=== PATIENT | female | born 1975 | race Caucasian/White ===

== ENCOUNTER 2016-03-07 13:55 | Emergency (ER) | payer OTHER ==
[~2016-03-07] VITALS: Ht 152.4 cm; Wt 83.9 kg
[~2016-03-07 13:55] MED LIST: AMOXICILLIN500 M3 PO; AUGMENTIN 875 M1 TAB PO; AUGMENTIN 875-1 EACH PO; AUGMENTIN 875875 MG PO; DOCUSATE SODIU100 MG PO; FLONASE120 SPRAY/ INH; IBU-6600 MG PO; LEVOTHYROXINE0.1 MG; LEVOTHYROXINE0.3 MG PO; LEVOTHYROXINE200 MC1 PO; LEVOTHYROXINE75 MCG PO; MOTRIN 800MG T800 MG PO; NASONEX0.05 MG/Ac INH; NASONEX17 GM NASB; PERCOCET 325 MG1 TA2 PO; PROAIR HFA8.5 GM INH; PROVENTIL0.09 MG/A1 INH; Q-PAP325 M1 PO; ROBITUSSIN W/CO10 ML PO; TESSALON PERLE100 M1 PO; TYLENOL #31 TAB PO; WAL ITIN D PO
[2016-03-07 14:04] VITALS: BP 153/80
--- NOTE | 2016-03-07 15:51 | ED INFLUENZA/URI COMPLAINT ---
History of Present Illness General Chief Complaint: Upper Respiratory Sx/Fever Stated Complaint: URI Source: patient, old records Exam Limitations: no limitations Vital Signs & Intake/Output Vital Signs & Intake/Output Vital Signs Date Time Temp Pulse Resp B/P Pulse O2 O2 Flow FiO2 Ox Delivery Rate 03/07 1404 98.2 107 18 153/80 100 Room Air Allergies Coded Allergies: NO KNOWN ALLERGIES (NO) (05/04/15) Reconcile Medications Acetaminophen (Q-Pap) 325 MG TABLET 2 TAB PO PRN PAIN (Reported) Albuterol Sulfate (Proair Hfa) 90 MCG HFA.AER.AD 2 PUF INH Q4-6 PRN PRN SOB Amoxicillin/Potassium Clav (Augmentin 875-125 Tablet) 875 MG-125 MG TABLET 1 TAB PO BID SINUSITIS Amoxicillin/Potassium Clav (Augmentin 875-125 Tablet) 875 MG-125 MG TABLET 1 TAB PO BID SINUSITIS Benzonatate (Tessalon Perle) 100 MG CAPSULE 1 CAP PO TID PRN COUGH Levothyroxine Sodium 200 MCG TABLET 1 TAB PO DAILY THYROID (Reported) Levothyroxine Sodium 75 MCG TABLET 1 TAB PO DAILY THYROID (Reported) Loratadine/Pseudoephedrine (Wal-Itin D 12 Hour Tablet) 5 MG-120 MG TAB.ER.12H 1 TAB PO Q12H PRN NASAL CONGESTION (Reported) Mometasone Furoate (Nasonex) 50 MCG SPRAY.PUMP 2 SPRAY NASB DAILY PRN CONGESTION Prednisone 20 MG TABLET 2 TAB PO DAILY BRONCHITIS Triage Note: PT TO ER C/C PRODUCTIVE COUGH AND SINUS CONGESTION X 9 DAYS, SAW PCP 2 DAYS AGO FOR SAME. GIVEN RX FOR MOTRIN. STATES S/S NOT IMPROVING. AFEBRILE, DENIES FEVERS OR CHILLS. RA SAT 100% Triage Nurses Notes Reviewed? yes : No Patient currently breastfeeds: No HPI: 60-year-old female with one-week history of intermittently productive cough, getting worse. Her primary care doctor this week who sent for an outpatient chest x-ray which was done at our facility which I reviewed and is negative for pneumonia however positive for possible small airway disease or bronchitis. She has nasal congestion and sinus congestion 4 days ago. Coughing has caused her to develop right-sided chest pain. Worse in the last few days. She was seen by her primary care doctor on [place] and placed on Motrin 600 mg without relief. She is a smoker. She is not taking any jffi-cxq-tsjqdap medication. Symptoms are moderate. She denies any fever or flulike illness. (TORREY MADDOX) Past History Travel History Traveled to [place] past 21 day No Medical History Any Pertinent Medical History? 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 No (TORREY MADDOX) Review of Systems Review of Systems Constitutional: Reports: see HPI. EENTM: Reports: see HPI. Respiratory: Reports: see HPI. Cardiovascular: Reports: no symptoms. GI: Reports: no symptoms. Genitourinary: Reports: no symptoms. Musculoskeletal: Reports: no symptoms. Skin: Reports: no symptoms. Neurological/Psychological: Reports: no symptoms. Hematologic/Endocrine: Reports: no symptoms. Immunologic/Allergic: Reports: no symptoms. All Other Systems: Reviewed and Negative (TORREY MADDOX) Physical Exam Physical Exam Ears, Nose, Throat: moist mucous membrane, hearing grossly normal, Tympanic normal, pharynx normal, nasal congestion, nasal drainage Comments: Well-developed well-nourished person in no acute distress Pharynx normal. No swelling or edema. Neck: Supple, no lymphadenopathy, normal range of motion without pain or tenderness Back: Nontender, no CVA tenderness. Full range of motion Cardiovascular: Regular rate and rhythms no murmurs, normal JVP Respiratory: Chest nontender. No respiratory distress. Very faint wheezing noted bilaterally Abdomen: Soft, nontender nondistended, no appreciable organomegaly. Normal bowel sounds. No ascites Extremity: No edema, no calf tenderness to palpation, normal and equal pulses. Neuro: Alert oriented x3, motor sensory normal, cranial nerves II through XII grossly intact. Skin: No appreciable rash on exposed skin, skin is warm and dry. Psych: Mood and affect is normal, memory and judgment is normal. Core Measures Severe Sepsis Present: No Septic Shock Present: No (TORREY MADDOX) Progress Differential Diagnosis: influenza, meningitis, neutropenia, otitis, pneumonia, pharyngitis, sinusitis Plan of Care: Patient is a smoker, over one week of symptoms, failed conservative treatment, will place an antibiotic short course of prednisone. Smoking cessation counseling discussed Initial ED EKG: none (TORREY MADDOX) Departure Departure Disposition: HOME OR SELF CARE Condition: Stable Clinical Impression Primary Impression: Acute bacterial sinusitis Secondary Impressions: Bronchitis Referrals: ANA BURRELL MD (PCP/Family) Additional Instructions: Take antibiotics for your infection as directed. Use eldn-dcx-nylgazk multisystem cold medication as needed. Motrin and Tylenol as needed for fever. Drink plenty of fluids. Return or follow-up with your doctor if not better in the next 3-5 days or if you're having continued worsening fevers, nausea, vomiting, shortness of breath, abdominal pain, difficulty swallowing or drinking or worsening flulike illness. Departure Forms: Customer Survey General Discharge Information Prescriptions: Current Visit Scripts Amoxicillin/Potassium Clav (Augmentin 875-125 Tablet) 1 TAB PO BID #14 TAB Prednisone 2 TAB PO DAILY #10 TAB (TORREY MADDOX) PA/PETROLEUM ENGINEERING TEACHER Co-Sign Statement Statement: ED Attending supervision documentation- [] I saw and evaluated the patient. I have also reviewed all the pertinent lab results and diagnostic results. I agree with the findings and the plan of care as documented in the PA's/PETROLEUM ENGINEERING TEACHER's documentation. x I have reviewed the ED Record and agree with the PA's/PETROLEUM ENGINEERING TEACHER's documentation. [] Additions or exceptions (if any) to the PAs/PETROLEUM ENGINEERING TEACHER's note and plan are summarized below: [] (JENNIFER WILL,AINSLEY)
[2016-03-07] MEDS ORDERED: AUGMENTIN 875-1 EACH PO (16:02)
[2016-03-07] MEDS ORDERED: PREDNISONE20 M1 PO (16:02)
== END 2016-03-07 16:12 ==
LOC: ERH 13:55
DX: R07.9 Chest pain, unspecified (principal); J32.9 Chronic sinusitis, unspecified; J40 Bronchitis, not specified as acute or chronic; F17.210 Nicotine dependence, cigarettes, uncomplicated

== ENCOUNTER 2016-03-14 15:56 | Emergency (ER) | payer OTHER ==
[~2016-03-14] VITALS: Ht 152.4 cm; Wt 86.2 kg
[~2016-03-14 15:56] MED LIST changes: +PREDNISONE20 M1 PO
--- NOTE | 2016-03-14 16:41 | ED GENERAL ADULT ---
History of Present Illness General Chief Complaint: Upper Respiratory Sx/Fever Stated Complaint: COUGH Source: patient Exam Limitations: no limitations Vital Signs & Intake/Output Vital Signs & Intake/Output Vital Signs Date Time Temp Pulse Resp B/P Pulse O2 O2 Flow FiO2 Ox Delivery Rate 03/14 1808 97.8 91 18 134/87 94 Room Air 03/14 1636 Room Air 03/14 1606 97.9 100 18 143/95 96 Room Air Allergies Coded Allergies: NO KNOWN ALLERGIES (NO) (05/04/15) Reconcile Medications Acetaminophen (Q-Pap) 325 MG TABLET 2 TAB PO PRN PAIN (Reported) Albuterol Sulfate (Proair Hfa) 90 MCG HFA.AER.AD 2 PUF INH Q4-6 PRN PRN SOB Albuterol Sulfate (Proair Hfa) 90 MCG HFA.AER.AD 2 PUF INH Q4-6 PRN PRN BRONCHITIS Amoxicillin/Potassium Clav (Augmentin 875-125 Tablet) 875 MG-125 MG TABLET 1 TAB PO BID SINUSITIS Benzonatate (Tessalon Perle) 100 MG CAPSULE 1 CAP PO TID PRN COUGH Estradiol 0.05 MG/24 HOUR PATCH.TDWK 1 PATCH TOP QWED HRT (Reported) Hydrocodone/Acetaminophen ([place] 5-325 Tablet) 5 MG-325 MG TABLET 1-2 TAB PO Q4-6 PRN PRN PAIN Ibuprofen 800 MG TABLET 1 TAB PO TID PRN INFLAMMATION/PAIN Levothyroxine Sodium (Synthroid) 300 MCG TABLET 1 TAB PO DAILY THYROID ( Reported) Triage Note: PT TO TRIAGE WITH C/O COUGH AND LEFT SIDED CONSTANT CHEST PAIN 07/17 SINCE 03/05. PT WAS SEEN AT PCP OFFICE ON 03/05 AND HERE IN ER ON 03/07 AND WAS ON AMOXICILLINE AND PREDNISONE SINCE. PT STATES SHE HAS NEW KIND OF BURNING CHEST PAIN x2DAYS AND STILL HAS PRODUCTIVE COUGH OF YELLOW SPUTUM. O2SAT 97% ON RA, VSS, PT AFEBRILE. PT DENIES ABD PAIN,N/V/D,URINARY S/S. HX OF VERTIGO AND HYPOTHYROID. Triage Nurses Notes Reviewed? yes Onset: Gradual Duration: week(s): (1) Timing: no prior history Injury Environment: home Severity: moderate Severity Numbers: 7 No Modifying Factors: none : No Patient currently breastfeeds: No HPI: Patient is a 40-year-old female presenting to the emergency department with chief complaint of left-sided rib pain, dry cough has been going on for the past 1-2 weeks. She saw her primary care physician who didn't x-ray, diagnosed her with bronchitis. Started her on cough medication steroids. Symptoms did not improve so she came to the emergency department for evaluation shortly afterwards. She reports that we put her on antibiotics and some more steroids which did not help. She still coughing and still has some left-sided rib pain. Denies any falls or trauma. No rashes. Denies any shortness of breath. She reports that the left-sided rib pain is now radiating up the left side of the chest. Symptoms have been constant for the past week or so. No history of cardiac issues. No family history of cardiac issues. No history of blood clots. Denies any recent travel. She does take control via skin patches. Denies any recent travel. Denies taking anything specific for the pain. Pain is currently moderate. Achy and worse with palpation. (DARRIN TRAN) Past History Travel History Traveled to [place] past 21 day Yes Medical History Any Pertinent Medical History? 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 No (DARRIN TRAN) Review of Systems Review of Systems Constitutional: Reports: no symptoms. Comments Review of systems: See HPI, All other systems negative. Constitutional, no chills fever or weight loss HEENT: No visual changes no sore throat no congestion Cardiovascular: No palpitation , orthopnea or ankle swelling Skin, no jaundice no rashes Respiratory: No dyspnea sputum or hemoptysis GI: No nausea no vomiting : No dysuria No hematuria Muscle skeletal: no back pain, no neck pain, Neurologic: No numbness no confusion Psych: No stress anxiety or depression,. Heme/endocrine: No bruising no bleeding no polyuria or polydipsia Immunology: No splenectomy or history of AIDS (DARRIN TRAN) Physical Exam Physical Exam General Appearance: well developed/nourished, no apparent distress, alert, awake , comfortable Comments: Well-developed well-nourished person in no acute distress HEENT: Pupils equally round and reactive to light and accommodation. Nose is atraumatic. External auditory canal and Tympanic membranes clear. Pharynx normal. No swelling or edema. Neck: Supple, no lymphadenopathy, normal range of motion without pain or tenderness Back: Nontender Cardiovascular: Regular rate and rhythms no murmurs rubs or gallops, normal JVP Respiratory: Chest is tender to palpation over the left lateral ribs. No obvious ecchymosis, no rashes. No respiratory distress.breath sounds clear to auscultation bilaterally Abdomen: Soft, nontender nondistended, no appreciable organomegaly. Normal bowel sounds. No ascites Extremity: No edema, no calf tenderness to palpation, normal and equal pulses. Neuro: Alert oriented x3 Skin: No appreciable rash on exposed skin, skin is warm and dry. Psych: Mood and affect is normal, memory and judgment is normal. Core Measures ACS in differential dx? Yes CVA/TIA Diagnosis: No Severe Sepsis Present: No Septic Shock Present: No (DARRIN TRAN) Progress Differential Diagnoses I considered the following diagnoses in my evaluation of the patient: Bronchitis, pneumonia, lung cancer, pulmonary embolus, dehydration, costochondritis, pleurisy, rib fracture Plan of Care: Orders Procedure Date/time Status D-DIMER 03/14 182 Complete Add-on Test (ER Only) 03/14 1806 Active TROPONIN LEVEL 03/14 1710 Complete COMPREHENSIVE METABOLIC PANEL 03/14 1710 Complete CBC WITHOUT DIFFERENTIAL 03/14 171 Complete EKG 03/14 1616 Active Laboratory Tests 03/14/16 1828: D-Dimer 217 03/14/16 1728: Anion Gap 7, Estimated GFR > 60, BUN/Creatinine Ratio 15.0, Glucose 91, Calcium 9.4, Total Bilirubin 0.3, AST 20, ALT 41, Alkaline Phosphatase 100, Troponin I < 0.01, Total Protein 6.5, Albumin 3.7, Globulin 2.8, Albumin/Globulin Ratio 1.3, CBC w Diff NO MAN DIFF REQ, RBC 4.53, MCV 94.3, MCH 31.6 H, RDW 14.8 H, MPV 8.6, Gran % 69.1, Lymphocytes % 25.8, Monocytes % 3.5, Eosinophils % 1.2, Basophils % 0.4, Absolute Granulocytes 7.2 H, Absolute Lymphocytes 2.7, Absolute Monocytes 0.4, Absolute Eosinophils 0.1, Absolute Basophils 0, PUBS MCHC 33.5 Diagnostic Imaging: Viewed by Me: Radiology Read. Discussed w/RAD: Radiology Read. Radiology Impression: PATIENT: BOYD HERNANDEZ PRESENT AGE: 40 PATIENT ACCOUNT NO: [id number] : 77 LOCATION: [facility] ORDERING PHYSICIAN: DARRIN TRIPLETT SERVICE DATE: 03/14/16-1709 EXAM TYPE: RAD - XRY-CHEST XRAY, PA AND LATERAL EXAMINATION: CHEST 2 VIEWS CLINICAL INFORMATION: COUGH, LEFT RIB PAIN. COMPARISON: 03/05/2016 chest x-ray. TECHNIQUE: PA and lateral views of the chest were obtained. FINDINGS: The lungs are well expanded. Mild peribronchial thickening again seen bilaterally. No focal infiltrate, effusion, edema, or pneumothorax. Cardiac and mediastinal silhouettes are within normal limits for technique. No acute bony abnormality seen IMPRESSION: Overall not significantly changed from the prior study with peribronchial cuffing seen centrally likely due to underlying reactive or small airways disease. No focal airspace disease. DICTATED BY: TORREY DINH MD DATE/TIME DICTATED:1727 CYLINDER SANDER OPERATOR:LEÓN DATE/TIME TRANSCRIBED:03/14/161727 CONFIDENTIAL, DO NOT COPY WITHOUT APPROPRIATE AUTHORIZATION. <Electronically signed in Other Vendor System> SIGNED BY: TORREY DINH MD 03/14/16 3208 Initial ED EKG: NSR (99 BPM) Prior EKG: unchanged Comments: Cannot perc patient negative. Patient takes hormonal supplementation. Patient resting comfortably, declined pain medication. Patient informed of all lab results, imaging studies. Likely bronchitis and costochondritis. D-dimer is negative. Patient will follow with primary care physician. (JERSON TRIPLETT,DARRIN) Departure Departure Time of Disposition: 1854 Disposition: HOME OR SELF CARE Condition: Stable Clinical Impression Primary Impression: Costochondral pain Secondary Impressions: Bronchitis Referrals: ANA BURRELL MD (PCP/Family) Additional Instructions: Follow-up with your primary care physician call TO MAKE appointment. Continue using grlt-fso-lweeawh anti-inflammatories. Finish amoxicillin previously prescribed. Take [place] as prescribed for severe pain. Departure Forms: Customer Survey General Discharge Information Prescriptions: Current Visit Scripts Ibuprofen 1 TAB PO TID PRN INFLAMMATION/PAIN #30 TAB Hydrocodone/Acetaminophen ([place] 5-325 Tablet) 1-2 TAB PO Q4-6 PRN PRN PAIN #12 TAB Albuterol Sulfate (Proair Hfa) 2 PUF INH Q4-6 PRN PRN BRONCHITIS #1 INHAL Benzonatate (Tessalon Perle) 1 CAP PO TID PRN COUGH #30 CAP (DARRIN TRAN) PA/CLINICAL FACULTY Co-Sign Statement Statement: ED Attending supervision documentation- [] I saw and evaluated the patient. I have also reviewed all the pertinent lab results and diagnostic results. I agree with the findings and the plan of care as documented in the PA's/CLINICAL FACULTY's documentation. [X] I have reviewed the ED Record and agree with the PA's/CLINICAL FACULTY's documentation. [] Additions or exceptions (if any) to the PAs/CLINICAL FACULTY's note and plan are summarized below: [] (PALOMO WILL,PHILL) Critical Care Note Critical Care Note Critical Care Time: non-applicable (DARRIN TRAN)
[2016-03-14] MEDS ORDERED: SYNTHROID300 MCG PO (16:43)
[2016-03-14] MEDS ORDERED: ESTRADIOL1 EAC4 TOP (16:44)
--- NOTE | 2016-03-14 17:33 | RADIOLOGY REPORT ---
EXAMINATION: CHEST 2 VIEWS CLINICAL INFORMATION: COUGH, LEFT RIB PAIN. COMPARISON: 03/05/2016 chest x-ray. TECHNIQUE: PA and lateral views of the chest were obtained. FINDINGS: The lungs are well expanded. Mild peribronchial thickening again seen bilaterally. No focal infiltrate, effusion, edema, or pneumothorax. Cardiac and mediastinal silhouettes are within normal limits for technique. No acute bony abnormality seen IMPRESSION: Overall not significantly changed from the prior study with peribronchial cuffing seen centrally likely due to underlying reactive or small airways disease. No focal airspace disease.
[2016-03-14 17:34] LABS: ABSOLUTE BASOPHIL COUNT 0 /CUMM (0.0-0.2); ABSOLUTE EOSINOPHIL COUNT 0.1 /CUMM (0.0-0.7); ABSOLUTE GRANULOCYTE CT 7.2 /CUMM (1.4-6.5); ABSOLUTE LYMPH COUNT 2.7 /CUMM (1.2-3.4); ABSOLUTE MONOCYTE COUNT 0.4 /CUMM (0.10-0.60); BASOPHIL % 0.4 % (0.0-2.0); EOSINOPHIL % 1.2 % (0-5); GRANULOCYTE % 69.1 % (42.2-75.2); HEMATOCRIT 42.8 % (37-47); MEAN CORPUSCULAR HGB 31.6 PG (27.0-31.0); MEAN CORPUSCULAR HGB CONC 33.5 G/DL (33.0-37.0); MEAN CORPUSCULAR VOLUME 94.3 FL (81.0-99.0); MEAN PLATELET VOLUME 8.6 FL (7.4-10.4); PLATELET COUNT 267 /CUMM (130-400); RBC DISTRIBUTION WIDTH 14.8 % (11.5-14.5); RED BLOOD CELL CT 4.53 /CUMM (4.20-5.40); WHITE BLOOD CELL COUNT 10.4 /CUMM (4.8-10.8)
[2016-03-14] MEDS ORDERED: TESSALON PERLE100 M1 PO (18:59)
[2016-03-14] MEDS ORDERED: NORCO 5-325 TA1 EACH PO (18:59)
[2016-03-14] MEDS ORDERED: PROAIR HFA8.5 GM INH (18:59)
[2016-03-14] MEDS ORDERED: IBUPROFEN800 M1 PO (18:59)
[2016-03-14 19:14] VITALS: BP 129/79
== END 2016-03-14 19:15 ==
LOC: ERH 15:56
PROVIDERS: Physician Assistant
DX: R07.9 Chest pain, unspecified (principal); M94.0 Chondrocostal junction syndrome [Tietze]; J40 Bronchitis, not specified as acute or chronic; F17.210 Nicotine dependence, cigarettes, uncomplicated
CPT/HCPCS: 93005; 93010

== ENCOUNTER 2016-06-23 20:03 | Emergency (ER) | payer OTHER ==
[~2016-06-23] VITALS: Ht 152.4 cm; Wt 86.2 kg
[~2016-06-23 20:03] MED LIST changes: +ESTRADIOL1 EAC4 TOP; +IBUPROFEN800 M1 PO; +NORCO 5-325 TA1 EACH PO; +SYNTHROID300 MCG PO
[2016-06-23 20:06] VITALS: BP 121/55
[2016-06-23] MEDS ORDERED: TESSALON PERLE100 M1 PO (21:50)
[2016-06-23] MEDS ORDERED: ZITHROMAX250 M2 PO (21:50)
[2016-06-23] MEDS ORDERED: NASONEX17 GM NASB (21:50)
--- NOTE | 2016-06-23 21:51 | ED INFLUENZA/URI COMPLAINT ---
History of Present Illness General Chief Complaint: General Adult Stated Complaint: PT HAS COUGHING UP STUFF STUFFY NOSE, Source: patient Exam Limitations: no limitations Vital Signs & Intake/Output Vital Signs & Intake/Output Vital Signs Date Time Temp Pulse Resp B/P B/P Pulse O2 O2 Flow FiO2 Mean Ox Delivery Rate 06/23 2200 96 Room Air 06/23 2005 96.8 100 18 121/55 96 Room Air Allergies Coded Allergies: NO KNOWN ALLERGIES (NO) (05/04/15) Reconcile Medications Acetaminophen (Q-Pap) 325 MG TABLET 2 TAB PO PRN PAIN (Reported) Albuterol Sulfate (Proair Hfa) 90 MCG HFA.AER.AD 2 PUF INH Q4-6 PRN PRN SOB Albuterol Sulfate (Proair Hfa) 90 MCG HFA.AER.AD 2 PUF INH Q4-6 PRN PRN BRONCHITIS Amoxicillin/Potassium Clav (Augmentin 875-125 Tablet) 875 MG-125 MG TABLET 1 TAB PO BID SINUSITIS Azithromycin (Zithromax) 250 MG TABLET 1 DP PO AD BRONCHITIS 2 the first day followed by 1 for days 2-5 Benzonatate (Tessalon Perle) 100 MG CAPSULE 1 CAP PO TID PRN COUGH Benzonatate (Tessalon Perle) 100 MG CAPSULE 1 CAP PO TID PRN COUGH Estradiol 0.05 MG/24 HOUR PATCH.TDWK 1 PATCH TOP QWED HRT (Reported) Hydrocodone/Acetaminophen ([place] 5-325 Tablet) 5 MG-325 MG TABLET 1-2 TAB PO Q4-6 PRN PRN PAIN Ibuprofen 800 MG TABLET 1 TAB PO TID PRN INFLAMMATION/PAIN Levothyroxine Sodium (Synthroid) 300 MCG TABLET 1 TAB PO DAILY THYROID ( Reported) Mometasone Furoate (Nasonex) 50 MCG SPRAY.PUMP 2 SPRAY NASB DAILY PRN CONGESTION Triage Note: PT TO TRIAGE WITH C/O COUGH PRODUCTIVE OF YELLOW SPUTUM AND COUNGESTION x6DAYS. DENIES FEVER. PT AFEBRILE IN TRIAGE. VSS. Triage Nurses Notes Reviewed? yes Onset: Gradual Duration: day(s): (6) Timing: remote history Severity: moderate Severity Numbers: 7 Prior Episodes/Possible Cause: occassional episodes No Modifying Factors: none : No Patient currently breastfeeds: No HPI: Patient is a 41-year-old female, daily smoker, presenting to the emergency Department chief complaint of intermittent productive cough of yellow sputum, malaise, sinus congestion and postnasal drip. Symptoms worse in the morning. Has been taking only pufg-dyb-xcqxjpt Tylenol without relief. Still has been smoking. No sick contacts or recent travel. No recent antibiotic use. No chest pain or palpitations. (DARRIN TRAN) Past History Travel History Traveled to [place] past 21 day No Medical History Any Pertinent Medical History? 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 No (DARRIN TRAN) Review of Systems Review of Systems Constitutional: Reports: malaise. Comments Review of systems: See HPI, All other systems negative. Constitutional, no chills fever or weight loss HEENT: No visual changes no sore throat Cardiovascular: No chest pain ,palpitation , orthopnea or ankle swelling Skin, no jaundice no rashes Respiratory: No dyspnea or hemoptysis GI: No nausea no vomiting : No dysuria No hematuria Muscle skeletal: no back pain, no neck pain, Neurologic: No numbness no confusion Psych: No stress anxiety or depression,. Heme/endocrine: No bruising no bleeding no polyuria or polydipsia Immunology: No splenectomy or history of AIDS (DARRIN TRAN) Physical Exam Physical Exam General Appearance: well developed/nourished, no apparent distress, alert, awake , comfortable Ears, Nose, Throat: pharyngeal erythema Comments: Well-developed well-nourished person in no acute distress HEENT: Pupils equally round and reactive to light and accommodation. Nose is atraumatic. External auditory canal and Tympanic membranes clear. Clear nasal discharge bilaterally. Pharynx is slightly erythematous, no exudate, clearing secretions without difficulty. No tonsillar enlargement.. No swelling or edema. Mild tenderness to palpation of the maxillary sinus bilaterally. Neck: Supple, no lymphadenopathy, normal range of motion without pain or tenderness Back: Nontender Cardiovascular: Regular rate and rhythms no murmurs rubs or gallops, normal JVP Respiratory: Chest nontender. No respiratory distress.breath sounds clear to auscultation bilaterally, reactive cough on exam. Extremity: No edema Neuro: Alert oriented x3 Skin: No appreciable rash on exposed skin, skin is warm and dry. Psych: Mood and affect is normal, memory and judgment is normal. Core Measures Severe Sepsis Present: No Septic Shock Present: No (DARRIN TRAN) Progress Differential Diagnosis: pneumonia, pharyngitis, sinusitis, BRONCHITIS Plan of Care: Patient's vitals are stable. Lungs clear to auscultation. She does have dry cough on exam. She is a daily smoker. Likely bronchitis. Patient will be treated for bronchitis Z-Scar, Tessalon Perles and Nasonex to follow up with PCP or return for worsening symptoms. Initial ED EKG: none (DARRIN TRAN) Departure Departure Time of Disposition: 2147 Disposition: HOME OR SELF CARE Condition: Stable Clinical Impression Primary Impression: Bronchitis Referrals: ANA BURRELL MD (PCP/Family) Additional Instructions: Follow-up with your primary care physician call to make appointment. Take Tessalon Perles as she for cough, use Nasonex as directed for congestion. supervisor photocomposition [id number]-[id number] Claritin or other allergy medication to take daily over the next couple weeks. Take Z-Scar if symptoms worsen over the next several days. Increase fluids. Departure Forms: Customer Survey General Discharge Information Prescriptions: Current Visit Scripts Azithromycin (Zithromax) 1 DP PO AD #6 TAB 2 the first day followed by 1 for days 2-5 Benzonatate (Tessalon Perle) 1 CAP PO TID PRN COUGH #30 CAP Mometasone Furoate (Nasonex) 2 SPRAY NASB DAILY PRN CONGESTION #1 INHAL (DARRIN TRAN) PA/USED CAR LOT PORTER Co-Sign Statement Statement: ED Attending supervision documentation- [] I saw and evaluated the patient. I have also reviewed all the pertinent lab results and diagnostic results. I agree with the findings and the plan of care as documented in the PA's/USED CAR LOT PORTER's documentation. [X] I have reviewed the ED Record and agree with the PA's/USED CAR LOT PORTER's documentation. [] Additions or exceptions (if any) to the PAs/USED CAR LOT PORTER's note and plan are summarized below: [] (BECKIE WILL,DIANA De Leon)
== END 2016-06-23 22:30 ==
LOC: ERH 20:03
DX: J40 Bronchitis, not specified as acute or chronic (principal); F17.210 Nicotine dependence, cigarettes, uncomplicated

== ENCOUNTER 2017-10-31 18:17 | Emergency (ER) | payer OTHER ==
[~2017-10-31] VITALS: Ht 152.4 cm; Wt 77.1 kg
[~2017-10-31 18:17] MED LIST changes: +ANTIVERT; +B-12500 MC2 PO; +BACLOFEN10 M1 PO; +BUPROPION HCL150 M4 PO; +CIPRO500 M1 PO; +CYCLOBENZAPRINE10 M1 PO; +DELTASONE20 MG PO; +IBUPROFEN600 M1 PO; +KETOROLAC TROME10 M1 PO; +OMEGA-3 ACID ETH1 GM PO; +PERCOCET 5-3251 EACH PO; +SYNTHROID175 MCG PO; +SYNTHROID200 MCG PO; +SYNTHROID88 MCG PO; +TRAMADOL HCL50 M1 PO; +ULTRAM50 M1 PO; +VITAMIN D2000 UNIT PO; +WELLBUTRIN XL300 M2 PO; +ZITHROMAX250 M2 PO; +ZOFRAN4 M2 PO
[2017-10-31 19:19] LABS: ABSOLUTE BASOPHIL COUNT 0.1 /CUMM (0.0-0.2); ABSOLUTE EOSINOPHIL COUNT 0.1 /CUMM (0.0-0.7); ABSOLUTE GRANULOCYTE CT 5.3 /CUMM (1.4-6.5); ABSOLUTE LYMPH COUNT 2.3 /CUMM (1.2-3.4); ABSOLUTE MONOCYTE COUNT 0.5 /CUMM (0.10-0.60); BASOPHIL % 0.8 % (0.0-2.0); EOSINOPHIL % 1.1 % (0-5); GRANULOCYTE % 64.1 % (42.2-75.2); HEMATOCRIT 44.3 % (37-47); MEAN CORPUSCULAR HGB 31.8 PG (27.0-31.0); MEAN CORPUSCULAR HGB CONC 33.8 G/DL (33.0-37.0); MEAN CORPUSCULAR VOLUME 94.1 FL (81.0-99.0); MEAN PLATELET VOLUME 8.4 FL (7.4-10.4); PLATELET COUNT 305 /CUMM (130-400); RBC DISTRIBUTION WIDTH 14.3 % (11.5-14.5); WHITE BLOOD CELL COUNT 8.2 /CUMM (4.8-10.8)
--- NOTE | 2017-10-31 20:07 | RADIOLOGY REPORT ---
EXAMINATION: XR CHEST CLINICAL INFORMATION: Chest pain. Shortness of breath. COMPARISON: Chest x-ray 03/14/2016 TECHNIQUE: 2 views of the chest were obtained. FINDINGS: Chronic mild increased interstitial lung markings. There is no acute abnormality. There is no infiltrate. No pulmonary vascular congestion. There is no pleural effusion. The heart size is normal. The cardiac and mediastinal contours are normal. . There are multilevel degenerative changes of dorsal spine. IMPRESSION: No acute change of chest.
[2017-10-31] MEDS ORDERED: PROVENTIL HFA6.7 GM INH (21:20)
--- NOTE | 2017-10-31 21:20 | ED CARDIAC/CP/PALPITATIONS ---
History of Present Illness General Chief Complaint: Chest Pain Stated Complaint: "MIGHT BE MY ANXIETY BUT I HAVE CP AND A COUGH" Source: patient Exam Limitations: no limitations Vital Signs & Intake/Output Vital Signs & Intake/Output Vital Signs Date Time Temp Pulse Resp B/P B/P Pulse O2 O2 Flow FiO2 Mean Ox Delivery Rate 10/31 1846 97.8 106 20 139/92 96 Room Air Allergies Coded Allergies: NO KNOWN ALLERGIES (NO) (05/04/15) Reconcile Medications Bupropion HCl (Bupropion HCl Sr) 150 MG TABLET.ER 1 TAB PO BID MENTAL HEALTH (Reported) Cholecalciferol (Vitamin D3) (Vitamin D) 2,000 UNIT CAPSULE 1 CAP PO DAILY SUPPLEMENT (Reported) Cyclobenzaprine HCl 10 MG TABLET 1 TAB PO QPM PRN PAIN Estradiol 0.05 MG/24 HOUR PATCH.TDWK 1 PATCH TOP QSUN HRT (Reported) Ibuprofen 800 MG TABLET 1 TAB PO TID PAIN Levothyroxine Sodium (Synthroid) 175 MCG TABLET 1 TAB PO DAILY THYROID ( Reported) [place]-3 Acid Ethyl Esters 1 GRAM CAPSULE 1 CAP PO DAILY CHOLESTEROL/ TRIGLYCERIDES (Reported) Triage Note: PT HERE WITH C/O CHEST PAIN AND COUGH THAT BEGAN TODAY. " I DONT KNOW IF ITS MY ANXIETY OR WHAT". PT REPORTS BEING UNDER STRESS. PT REPORTS THAT THE COUGH PRODUCES A WHITISH/BROWN SPUTUM. Triage Nurses Notes Reviewed? yes : No Patient currently breastfeeds: No HPI: 42-year-old white female smoker who presents with onset of left-sided sharp nonradiating chest pain at 1 PM today while filling out an application. Pain has been persistent since that time. It is unassociated with any shortness of breath, hemoptysis, leg pain, swelling, weight gain, fever, chills, but is associated with a cough that has been intermittent for the past week. Patient self diagnose her pain as anxiety and has been taking Wellbutrin for for her anxiety. Patient had a normal stress tests within the past 4 years. Her heart score is one-point and her PERC rule calculator is 0. Past History Travel History Traveled to [place] past 21 day No Medical History Any Pertinent Medical History? 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 No Review of Systems Review of Systems Constitutional: Reports: see HPI. Denies: no symptoms, chills, diaphoresis, fever, malaise, weakness, unexplained weight loss. All Other Systems: Reviewed and Negative Physical Exam Physical Exam General Appearance: well developed/nourished, no apparent distress, alert, awake , anxious Head: atraumatic, normal appearance Eyes: Bilateral: normal appearance, PERRL. Ears, Nose, Throat: normal pharynx Neck: normal inspection, supple, full range of motion Respiratory: normal breath sounds, Scant end expiratory wheeze on right with fully reproducible left 3rd costochondral junction pain on left Cardiovascular: regular rate/rhythm Gastrointestinal: normal bowel sounds, soft, non-tender Extremities: normal inspection, normal capillary refill, normal range of motion, no edema Neurologic/Psych: no motor/sensory deficits, awake, alert, oriented x 3 Core Measures ACS in differential dx? Yes CVA/TIA Diagnosis Yes Sepsis Present: No Sepsis Focused Exam Completed? No All Positive = PERC Ruled Out: Negative: age < 50 years, heart rate < 100 bpm, O2 sat > 94%, no hemoptysis, no hormone use, no prior DVT or PE, no unilateral leg swellin, no surgery/trauma w/ in 4w. Progress Differential Diagnosis: AMI, aortic dissection, atrial fibrillation, costochondritis, hyperkalemia, hyperventilation, musculoskeletal pain, myocarditis, pericarditis, pneumonia, pneumothorax, PUD/GERD Plan of Care: Orders Procedure Date/time Status Add-on Test (ER Only) 11/01 2027 Active D-DIMER 10/31 190 Complete URINE 10/31 1848 Complete URINALYSIS 10/31 1848 Complete TROPONIN LEVEL 10/31 1848 Complete COMPREHENSIVE METABOLIC PANEL 10/31 1848 Complete CBC WITHOUT DIFFERENTIAL 10/31 1848 Complete EKG 10/31 1846 Active Laboratory Tests [id number]: Urine Color YEL, Urine Clarity CLDY H, Urine pH 6.5, Ur Specific [place] <= 1.005, Urine Protein NEG, Urine Ketones NEG, Urine Nitrite NEG, Urine Bilirubin NEG, Urine Urobilinogen 0.2, Ur Leukocyte Esterase SMALL H, Ur Microscopic SEDIMENT EXAMINED, Urine RBC FEW H, Urine WBC 10-15 H, Ur Epithelial Cells MANY H, Urine Bacteria MANY H, Urine Hemoglobin NEG, Urine Glucose NEG, Urine Test NEGATIVE 10/31/171900: Anion Gap 8, Estimated GFR > 60, BUN/Creatinine Ratio 5.6 L, Glucose 86, Calcium 9.6, Total Bilirubin 0.3, AST 26, ALT 35, Alkaline Phosphatase 93, Troponin I < 0.01, Total Protein 6.7, Albumin 4.1, Globulin 2.6, Albumin/ Globulin Ratio 1.6, D-Dimer High Sensitivty < 200, CBC w Diff NO MAN DIFF REQ, RBC 4.70, MCV 94.1, MCH 31.8 H, MCHC 33.8, RDW 14.3, MPV 8.4, Gran % 64.1, Lymphocytes % 28.0, Monocytes % 6.0, Eosinophils % 1.1, Basophils % 0.8, Absolute Granulocytes 5.3, Absolute Lymphocytes 2.3, Absolute Monocytes 0.5, Absolute Eosinophils 0.1, Absolute Basophils 0.1 Initial ED EKG: normal axis, normal intervals, normal p-waves, normal QRS complex, normal sinus rhythm Comments: Long conversation with patient regarding the treatment for anxiety disorders to include mindfulness meditation, cognitive behavioral therapy, and selective serotonin reuptake inhibitors/selective nortriptyline reuptake inhibitors. Patient is advised as well to stop smoking. She will be given a prescription for an albuterol inhaler. She will follow-up with her PCP for ongoing care. Departure Departure Time of Disposition: 2116 Disposition: HOME OR SELF CARE Condition: Stable Clinical Impression Primary Impression: Chest wall pain Secondary Impressions: Acute bronchitis Qualifiers: Bronchitis organism: unspecified organism Qualified Code: J20.9 - Acute bronchitis, unspecified Chest pain Qualifiers: Chest pain type: chest pain on breathing Qualified Code: R07.1 - Chest pain on breathing Referrals: Jonathan Whitney MD (PCP/Family) Additional Instructions: Please stop smoking. Follow-up with your PCP to discuss medications for your anxiety disorder. Consider mindfulness meditation and cognitive behavioral therapy. Use Motrin 800 mg 3 times a day with food as needed for your chest pain but not for more than 2-3 days. Use the albuterol inhaler for your smokers cough. Departure Forms: Customer Survey General Discharge Information Critical Care Note Critical Care Note Critical Care Time: non-applicable
[2017-10-31 21:24] VITALS: BP 143/90
== END 2017-10-31 21:26 ==
LOC: ERH 18:17
PROVIDERS: Physician Assistant Medical
DX: J20.9 Acute bronchitis, unspecified (principal); R07.89 Other chest pain; E03.9 Hypothyroidism, unspecified; F17.210 Nicotine dependence, cigarettes, uncomplicated; N80.9 Endometriosis, unspecified; N83.209 Unspecified ovarian cyst, unspecified side
CPT/HCPCS: 71046; 81001; 81025; 93005; 93010